=== PATIENT | male | born 1970 ===

== ENCOUNTER 2020-03-10 21:15 | Emergency (ER) | payer SELFPAY ==
[~2020-03-10] VITALS: Ht 182.9 cm; Wt 82.8 kg
[2020-03-10 21:18] VITALS: BP 158/79
[2020-03-10] MEDS ORDERED: METHOCARBAMOL 750 MG TABLET ONE (21:44)
[2020-03-10] MEDS ORDERED: IBUPROFEN 200 MG TABLET ONE (21:44)
--- NOTE | 2020-03-10 21:52 | NUR ---
PATIENT CLEARED FOR DISCHARGE. VERBALIZED UNDERSTANDING OF SELF CARE AND FOLLOW UP CARE AT HOME. PATIENT AMBULATORY TO DISCHARGE WITH BELONGING WITHOUT COMPLICATIONS. NO NOTED ACUTE DISTRESS, NO NOTED ADDITIONAL QUESTIONS AT TIME OF DISCHARGE.
[2020-03-10] MEDS ORDERED: METHOCARBAMOL 750 MG TABLET PO ONE (22:00)
[2020-03-10] MEDS ORDERED: IBUPROFEN 800 MG TABLET PO ONE (22:00)
== END 2020-03-10 21:57 | disposition home or self-care (01) ==
LOC: ED 21:30
DX: S06.0X0A Concussion without loss of consciousness, initial encounter (principal); W18.39XA Other fall on same level, initial encounter; Y93.66 Activity, soccer; Y92.098 Other place in other non-institutional residence as the place of occurrence of the external cause; Y99.8 Other external cause status
CPT/HCPCS: 99283